=== PATIENT | female | born 1970 | race Caucasian/White ===

== ENCOUNTER 2018-05-11 15:13 | Emergency (ER) | payer OTHER ==
[~2018-05-11] VITALS: Ht 167.6 cm; Wt 65.3 kg
--- OUTSIDE RECORDS SUMMARY | ~2018-05-11 | XMS ---
Demographics + + + | Address | [address] | | | [place] [address] | + + + | Preferred Language | Unknown | + + + | Marital Status | Unknown | + + + | Hindu Affiliation | Unknown | + + + | Race | Unknown | + + + | Ethnic Group | Unknown | + + + Author + + + | Author | [facility] | + + + | Organization | [facility] | + + + | Address | [address] | | | [place] [address] | + + + | Phone | | + + + Care Team Providers + + + + | Care Business Enterprise Officer Name | Role | Phone | + + + + Unavailable | Unavailable | + + + + PROBLEMS +---------+ + + +--------+ + + | Type | Condition | ICD9-CM | XRF04-MR | Onset | Condition | SNOMED | | | | Code | Code | Dates | Status | Code | +---------+ + + +--------+ + + | Problem | Urge | | N39.41 | | Active | 20746069 | | | incontinen | | | | | | | | ce | | | | | | +---------+ + + +--------+ + + ALLERGIES + + + + +--------+ | Substance | Reaction | Event Type | Date | Status | + + + + +--------+ | Ibuprofen | cannot absorb | Drug Allergy | Jul, | Active | + + + + +--------+ | Sulfa | Unknown | Drug Allergy | Jul, | Active | + + + + +--------+ | latex | rash | Non Drug | Jul, | Active | | | | Allergy | | | + + + + +--------+ SOCIAL HISTORY No smoking Hx information available PLAN OF CARE + +---------+ | Activity | Details | + +---------+ +---+ | | +---+ + + + | Follow Up | prn Reason:null | + + + VITAL SIGNS + + + + | Height | 65.5 in | 2016-08-03 | + + + + | Weight | 144.6 lbs | 2016-08-03 | + + + + | BMI | 23.69 kg/m2 | 2016-08-03 | + + + + | Temperature | 97.8 degrees Fahrenheit | 2016-08-03 | + + + + | Heart Rate | 74 /min | 2016-08-03 | + + + + | Blood pressure systolic | 110 mm Hg | 2016-08-03 | + + + + | Blood pressure diastolic | 66 mm Hg | 2016-08-03 | + + + + MEDICATIONS + + + + +--------+ + +--------+ | Medicati | Instruct | Dosage | Frequenc | Start | End Date | Duration | Status | | on | ions | | y | Date | | | | + + + + +--------+ + +--------+ | Calcium | Orally | 1 tablet | 12h | | | | Active | | 500 MG | Twice a | with | | | | | | | | day | meals | | | | | | + + + + +--------+ + +--------+ | Multi | Orally | 1 tablet | 24h | | | | Active | | Vitamin | Once a | | | | | | | | Daily | day | | | | | | | + + + + +--------+ + +--------+ | Potassiu | PO Twice | 1 | 12h | | | | Active | | m | a day | | | | | | | | Chloride | | | | | | | | | 20 MEQ | | | | | | | | + + + + +--------+ + +--------+ RESULTS + +--------+------+ + | Name | Result | Date | Reference Range | + +--------+------+ + | X ray : Hand AP/L/O | | | | | (3+views)- RT | | | | + +--------+------+ + PROCEDURES + + + + + | Procedure | Date Ordered | Related Diagnosis | Body Site | + + + + + | [facility] MED/CURRENT | August 03, 2016 | | | | MED MERGE | | | | + + + + + | DOC MEDS VERIFIED | August 03, 2016 | | | | W/PT OR RE | | | | + + + + + | Est Level III | August 03, 2016 | | | | Intermediate | | | | + + + + + IMMUNIZATIONS No Known Immunizations"
--- OUTSIDE RECORDS SUMMARY | ~2018-05-11 | XMS ---
Demographics + + + | Address | [address] | | | [place] [address] | + + + | Preferred Language | Unknown | + + + | Marital Status | Unknown | + + + | Sikhism Affiliation | Unknown | + + + | Race | Unknown | + + + | Ethnic Group | Unknown | + + + Author + + + | Author | [facility] | + + + | Organization | [facility] | + + + | Address | [address] | | | [place] [address] | + + + | Phone | | + + + Care Team Providers + + + + | Care Assurance Auditor Name | Role | Phone | + + + + Unavailable | Unavailable | + + + + PROBLEMS +---------+ + + +--------+ + + | Type | Condition | ICD9-CM | [id number] | Onset | Condition | SNOMED | | | | Code | Code | Dates | Status | Code | +---------+ + + +--------+ + + | Problem | Urge | | N39.41 | | Active | [id number] | | | incontinen | | | | | | | | ce | | | | | | +---------+ + + +--------+ + + ALLERGIES Unknown Allergies SOCIAL HISTORY No smoking Hx information available PLAN OF CARE VITAL SIGNS MEDICATIONS Unknown Medications RESULTS No Results PROCEDURES No Known procedures IMMUNIZATIONS No Known Immunizations"
[~2018-05-11 15:13] MED LIST: CALCIUM500 M1 PO; CYCLOBENZAPRINE10 MG PO; EXCEDRIN MIGRA1 EAC2 PO; IBUPROFEN800 MG PO; IRON325 M1 PO; MULTIVITAMINS1 EAC7 PO; NAPROXEN500 MG PO; PERCOCET 5-3251 EACH; POTASSIUM 25 M25 MEQ PO
[2018-05-11] MEDS ORDERED: NORCO 10-325 T1 EACH PO (17:59)
--- NOTE | 2018-05-12 15:33 | EKG ---
[facility] [address] [place], [place] [address] Signed Normal sinus rhythm Normal ECG When compared with ECG of 18-JAN-2016 12:45, No significant change was found Confirmed by BARBARA SAMANO DO ([id number]) on 05/12/2018 3:33:18 PM Electronically Signed By: BARBARA SAMANO DO 05/12/18 1533 PATIENT NAME: KENN RUSS Electrocardiogram DATE OF : 74 PHYSICIAN: BARBARA SAMANO DO REPORT #: [id number] REPORT IS CONFIDENTIAL AND NOT TO BE RELEASED WITHOUT AUTHORIZATION
== END 2018-05-11 18:12 | disposition home or self-care (01) ==
LOC: ED 15:13
DX: S20.212A Contusion of left front wall of thorax, initial encounter (principal); S00.12XA Contusion of left eyelid and periocular area, initial encounter; S00.83XA Contusion of other part of head, initial encounter; W06.XXXA Fall from bed, initial encounter; Z88.2 Allergy status to sulfonamides; Z91.040 Latex allergy status; D64.9 Anemia, unspecified
CPT/HCPCS: 70450; 71101; 93005; 93010; 99285-25